=== PATIENT | female | born 1970 | race American Indian/Alaskan Native ===

== ENCOUNTER 2016-07-11 17:13 | Emergency (ER) | payer MEDICARE ==
[2016-07-11 19:02] VITALS: BP 142/94
--- NOTE | 2016-07-11 19:52 | Emergency Department Report ---
- General Chief Complaint: Dyspnea/Respdistress Stated Complaint: COUGHING WHITE THICK MUCUS Time Seen by Provider: 07/11/16 19:36 Source: patient Mode of arrival: Ambulatory Limitations: No Limitations - History of Present Illness Initial Comments: 46-year-old female presents to the emergency room with complaints of cough, cold symptoms, sinus congestion since last 3 days. Denies cough or any fever. Patient claims that she has similar episode in March of this year. He denies any chest pain or difficulty breathing. MD Complaint: cough, sore throat, rhinorrhea, nasal congestion -: Gradual (3) Severity: moderate Severity scale (0 -10): 3 Quality: dull Improves With: nothing Worsens With: deep breaths Associated Symptoms: rhinorrhea, nasal congestion, cough Treatments Prior to Arrival: none - Related Data Home Medications Medication Instructions Recorded Confirmed Last Taken Losartan/Hydrochlorothiazide 1 each PO QDAY 01/24/13 07/14/15 07/08/13 [Hyzaar 50-12.5] Insulin Aspart [NovoLOG 100 8 unit SQ AC 07/08/13 07/14/15 07/08/13 UNITS/ML VIAL] Insulin Glargine,Hum.rec.anlog 30 unit SQ QHS 07/08/13 07/14/15 07/08/13 [Lantus] AtorvaSTATin [Lipitor] 40 mg PO QHS 05/12/15 07/14/15 Unknown Folic Acid 1 mg PO DAILY 07/14/15 07/14/15 Unknown Previous Rx's Medication Instructions Recorded Last Taken Type HYDROcodone/APAP 5-325 [[place] 1 - 2 each PO Q6HR PRN #14 tablet 05/13/15 Unknown Rx 5/325] Ibuprofen [Motrin 800 MG tab] 800 mg PO Q8HR PRN #20 tablet 05/13/15 Unknown Rx Oxycodone HCl/Acetaminophen 1 each PO Q6HR PRN #20 tablet 07/14/15 Unknown Rx [Percocet 10/325 mg] Sulfamethoxazole/Trimethoprim 1 each PO BID #20 tablet 08/11/15 Unknown Rx [Bactrim DS TAB] Albuterol Sulfate [Proair 90 mcg IH Q4HR PRN #2 aer.pow.ba 05/09/16 Unknown Rx Respiclick] Benzonatate [Tessalon Perles] 100 mg PO Q8HR PRN #30 capsule 05/09/16 Unknown Rx Fluticasone [Flonase] 1 spray NS QDAY #1 bottle 05/09/16 Unknown Rx Ketorolac [Toradol] 10 mg PO Q6H PRN #20 tablet 05/09/16 Unknown Rx Azithromycin [Zithromax Z-CELIO] 0 mg PO DAILY #1 pack 07/11/16 Unknown Rx Cetirizine HCl [ZyrTEC] 10 mg PO DAILY #20 capsule 07/11/16 Unknown Rx Guaifenesin/Codeine Phosphate 15 ml PO QID #1 bottle 07/11/16 Unknown Rx [Guaifenesin-Codeine Syrup] predniSONE [Deltasone] 20 mg PO QDAY #5 tab 07/11/16 Unknown Rx Allergies Allergy/AdvReac Type Severity Reaction Status Date / Time No Known Allergies Allergy Verified 01/15/15 12:08 ED Review of Systems ROS: Stated complaint: COUGHING WHITE THICK MUCUS Other details as noted in HPI Comment: All other systems reviewed and negative Constitutional: denies: chills, fever Eyes: denies: eye pain, eye discharge, vision change ENT: denies: ear pain, throat pain Respiratory: see HPI, cough. denies: shortness of breath, wheezing Cardiovascular: as per HPI. denies: chest pain, palpitations Endocrine: no symptoms reported Gastrointestinal: as per HPI. denies: abdominal pain, nausea, diarrhea Genitourinary: denies: urgency, dysuria, discharge Musculoskeletal: as per HPI. denies: back pain, joint swelling, arthralgia Skin: denies: rash, lesions Neurological: denies: headache, weakness, paresthesias Psychiatric: denies: anxiety, depression Hematological/Lymphatic: denies: easy bleeding, easy bruising ED Past Medical Hx - Past Medical History Hx Hypertension: Yes Hx CVA: No Hx Heart Attack/AMI: No Hx Congestive Heart Failure: No Hx Diabetes: Yes Hx Deep Vein Thrombosis: No Hx Pulmonary Embolism: No Hx GERD: No Hx Liver Disease: No Hx Renal Disease: No Hx Sickle Cell Disease: Yes Hx Arthritis: No Hx Headaches / Migraines: Yes Hx Seizures: No Hx Kidney Stones: No Hx Psychiatric Treatment: No Hx Asthma: No Hx COPD: No Hx Tuberculosis: No Hx Dementia: No Hx HIV: No Additional medical history: High cholesterol, thalassemia. neuropathy - Surgical History Hx Coronary Stent: No Hx Open Heart Surgery: No Hx Pacemaker: No Hx Internal Defibrillator: No Hx Cholecystectomy: No Hx Appendectomy: No Hx Breast Surgery: No Additional Surgical History: Partial Hysterectomy (2009), Left & right foot posterior tendon repair - Social History Smoking Status: Never Smoker Substance Use Type: None - Medications Home Medications: Home Medications Medication Instructions Recorded Confirmed Last Taken Type Losartan/Hydrochlorothiazide 1 each PO QDAY 01/24/13 07/14/15 07/08/13 History [Hyzaar 50-12.5] Insulin Aspart [NovoLOG 100 8 unit SQ AC 07/08/13 07/14/15 07/08/13 History UNITS/ML VIAL] Insulin Glargine,Hum.rec.anlog 30 unit SQ QHS 07/08/13 07/14/15 07/08/13 History [Lantus] AtorvaSTATin [Lipitor] 40 mg PO QHS 05/12/15 07/14/15 Unknown History HYDROcodone/APAP 5-325 [[place] 1 - 2 each PO Q6HR PRN #14 tablet 05/13/15 Unknown Rx 5/325] Ibuprofen [Motrin 800 MG tab] 800 mg PO Q8HR PRN #20 tablet 05/13/15 07/14/15 Unknown Rx Folic Acid 1 mg PO DAILY 07/14/15 07/14/15 Unknown History Oxycodone HCl/Acetaminophen 1 each PO Q6HR PRN #20 tablet 07/14/15 Unknown Rx [Percocet 10/325 mg] Sulfamethoxazole/Trimethoprim 1 each PO BID #20 tablet 08/11/15 Unknown Rx [Bactrim DS TAB] Albuterol Sulfate [Proair 90 mcg IH Q4HR PRN #2 aer.pow.ba 05/09/16 Unknown Rx Respiclick] Benzonatate [Tessalon Perles] 100 mg PO Q8HR PRN #30 capsule 05/09/16 Unknown Rx Fluticasone [Flonase] 1 spray NS QDAY #1 bottle 05/09/16 Unknown Rx Ketorolac [Toradol] 10 mg PO Q6H PRN #20 tablet 05/09/16 Unknown Rx Azithromycin [Zithromax Z-CELIO] 0 mg PO DAILY #1 pack 07/11/16 Unknown Rx Cetirizine HCl [ZyrTEC] 10 mg PO DAILY #20 capsule 07/11/16 Unknown Rx Guaifenesin/Codeine Phosphate 15 ml PO QID #1 bottle 07/11/16 Unknown Rx [Guaifenesin-Codeine Syrup] predniSONE [Deltasone] 20 mg PO QDAY #5 tab 07/11/16 Unknown Rx ED Physical Exam - General Limitations: No Limitations General appearance: alert, in no apparent distress - Head Head exam: Present: atraumatic, normocephalic - Eye Eye exam: Present: normal appearance, PERRL, EOMI - ENT ENT exam: Present: normal exam, mucous membranes moist - Neck Neck exam: Present: normal inspection, tenderness - Respiratory Respiratory exam: Present: normal lung sounds bilaterally. Absent: respiratory distress, wheezes, rales, rhonchi, stridor - Cardiovascular Cardiovascular Exam: Present: regular rate, normal rhythm. Absent: systolic murmur, diastolic murmur, rubs, gallop - GI/Abdominal GI/Abdominal exam: Present: soft, normal bowel sounds - Extremities Exam Extremities exam: Present: normal inspection - Back Exam Back exam: Present: normal inspection - Neurological Exam Neurological exam: Present: alert, oriented X3 - Psychiatric Psychiatric exam: Present: normal affect, normal mood - Skin Skin exam: Present: warm, dry, intact, normal color. Absent: rash ED Course Vital Signs 07/11/16 18:57 Temperature 98.3 F Pulse Rate 85 Respiratory 18 Rate Blood Pressure 142/94 O2 Sat by Pulse 100 Oximetry Critical Care Time: No Critical care attestation.: If time is entered above; I have spent that time in minutes in the direct care of this critically ill patient, excluding procedure time. ED Disposition Clinical Impression: Bronchitis, acute, with bronchospasm, Cough Disposition: DISCHARGED TO HOME OR SELFCARE Is pt being admited?: No Does the pt Need Aspirin: No Condition: Good Instructions: Acute Bronchitis (ED) Prescriptions: Azithromycin [Zithromax Z-CELIO] 0 mg PO DAILY #1 pack Cetirizine HCl [ZyrTEC] 10 mg PO DAILY #20 capsule Guaifenesin/Codeine Phosphate [Guaifenesin-Codeine Syrup] 15 ml PO QID #1 bottle predniSONE [Deltasone] 20 mg PO QDAY #5 tab Referrals: PRIMARY CARE,MD [Primary Care Provider] - 3-5 Days
== END 2016-07-11 20:20 | disposition home or self-care (01) ==
LOC: ED 17:13
DX: J20.9 Acute bronchitis, unspecified (principal); I10 Essential (primary) hypertension; E11.9 Type 2 diabetes mellitus without complications; D57.00 Hb-SS disease with crisis, unspecified; E78.00 Pure hypercholesterolemia, unspecified; Z79.4 Long term (current) use of insulin
CPT/HCPCS: 99282

== ENCOUNTER 2016-08-07 21:10 | Emergency (ER) | payer MEDICARE ==
[2016-08-07 22:46] LABS: Basophils % (Auto) 0.6 % (0.0-1.8); Eosinophils % (Auto) 1.4 % (0.0-4.3); Hematocrit 30.8 % (30.3-42.9); Mean Corpuscular HGB Conc 33 % (30-34); Platelet Count 220 K/mm3 (140-440); Red Blood Count 4.52 M/mm3 (3.65-5.03); White Blood Count 6.8 K/mm3 (4.5-11.0)
[2016-08-07 22:50] LABS: Mean Corpuscular Hemoglobin 22 pg (28-32); Mean Corpuscular Volume 68 fl (79-97)
[2016-08-07 23:08] LABS: Alanine Aminotransferase 24 units/L (7-56); Albumin 4.3 g/dL (3.9-5); Albumin/Globulin Ratio 1.7 %; Alkaline Phosphatase 91 units/L (35-129); Anion Gap 20 mmol/L; BUN/Creatinine Ratio 11.42; Blood Urea Nitrogen 8 mg/dL (7-17); Calcium 9.2 mg/dL (8.4-10.2); Carbon Dioxide 25 mmol/L (22-30); Chloride 98.1 mmol/L (98-107); Glucose 331 mg/dL (65-100); Potassium 3.8 mmol/L (3.6-5.0); Sodium 139 mmol/L (137-145); Total Protein 6.8 g/dL (6.3-8.2)
[2016-08-08 00:07] LABS: Bilirubin,Urine NEG (Negative); Blood,Urine NEG (Negative); Ketones,Urine NEG (Negative); Leukocyte Esterase,Urine NEG (Negative); Mucus,Urine FEW /HPF; Nitrite,Urine NEG (Negative); Protein,Urine <15 mg/dL mg/dL (Negative); Urobilinogen,Urine < 2.0 mg/dL (<2.0)
[2016-08-08] MEDS ORDERED: NACL 0.9% 1000 ML 1,000 ML IV ONE (06:40)
--- NOTE | 2016-08-08 06:40 | Emergency Department Report ---
ED Female HPI - General Chief complaint: Abdominal Pain Stated complaint: ABD PAIN/VAGINAL IRRITATION Time Seen by Provider: 08/08/16 06:38 Source: patient Mode of arrival: Ambulatory Limitations: No Limitations - History of Present Illness Initial comments: Patient describes a malodorous vaginal discharge. She states that she believes she has an STD. Instead of waiting for a walk and she tells me with her precision grinder she came to the emergency department last night. She had not been seen by my arrival this morning. She does not complain of abdominal pain. She states that she placed a Q-tip inside her to be discharged but does not believe that she has a foreign body. She is status post a hysterectomy. She does not use any pads. She's had no recent fever or chills. MD Complaint: vaginal discharge, possible STD -: days(s) Severity: moderate Consistency: intermittent Improves with: none Worsens with: none Are you Now?: No - Related Data Sexually active: Yes Home Medications Medication Instructions Recorded Confirmed Last Taken Losartan/Hydrochlorothiazide 1 each PO QDAY 01/24/13 07/14/15 07/08/13 [Hyzaar 50-12.5] Insulin Aspart [NovoLOG 100 8 unit SQ AC 07/08/13 07/14/15 07/08/13 UNITS/ML VIAL] Insulin Glargine,Hum.rec.anlog 30 unit SQ QHS 07/08/13 07/14/15 07/08/13 [Lantus] AtorvaSTATin [Lipitor] 40 mg PO QHS 05/12/15 07/14/15 Unknown Folic Acid 1 mg PO DAILY 07/14/15 07/14/15 Unknown Previous Rx's Medication Instructions Recorded Last Taken Type HYDROcodone/APAP 5-325 [[place] 1 - 2 each PO Q6HR PRN #14 tablet 05/13/15 Unknown Rx 5/325] Ibuprofen [Motrin 800 MG tab] 800 mg PO Q8HR PRN #20 tablet 05/13/15 Unknown Rx Oxycodone HCl/Acetaminophen 1 each PO Q6HR PRN #20 tablet 07/14/15 Unknown Rx [Percocet 10/325 mg] Sulfamethoxazole/Trimethoprim 1 each PO BID #20 tablet 08/11/15 Unknown Rx [Bactrim DS TAB] Albuterol Sulfate [Proair 90 mcg IH Q4HR PRN #2 aer.pow.ba 05/09/16 Unknown Rx Respiclick] Benzonatate [Tessalon Perles] 100 mg PO Q8HR PRN #30 capsule 05/09/16 Unknown Rx Fluticasone [Flonase] 1 spray NS QDAY #1 bottle 05/09/16 Unknown Rx Ketorolac [Toradol] 10 mg PO Q6H PRN #20 tablet 05/09/16 Unknown Rx Azithromycin [Zithromax Z-CELIO] 0 mg PO DAILY #1 pack 07/11/16 Unknown Rx Cetirizine HCl [ZyrTEC] 10 mg PO DAILY #20 capsule 07/11/16 Unknown Rx Guaifenesin/Codeine Phosphate 15 ml PO QID #1 bottle 07/11/16 Unknown Rx [Guaifenesin-Codeine Syrup] predniSONE [Deltasone] 20 mg PO QDAY #5 tab 07/11/16 Unknown Rx Fluconazole [Diflucan] 100 mg PO QDAY #7 bottle 08/08/16 Unknown Rx metroNIDAZOLE [Metrogel] 60 gm TP QDAY #60 gel..gram. 08/08/16 Unknown Rx traMADol [Ultram] 50 mg PO Q6HR PRN #10 tablet 08/08/16 Unknown Rx Allergies Allergy/AdvReac Type Severity Reaction Status Date / Time No Known Allergies Allergy Verified 01/15/15 12:08 ED Review of Systems ROS: Stated complaint: ABD PAIN/VAGINAL IRRITATION Other details as noted in HPI Constitutional: denies: chills, fever Eyes: denies: eye pain, eye discharge, vision change ENT: denies: ear pain, throat pain Respiratory: denies: cough, shortness of breath, wheezing Cardiovascular: denies: chest pain, palpitations Endocrine: no symptoms reported Gastrointestinal: denies: abdominal pain, nausea, diarrhea Genitourinary: as per HPI. denies: urgency, dysuria, discharge Musculoskeletal: denies: back pain, joint swelling, arthralgia Skin: denies: rash, lesions Neurological: denies: headache, weakness, paresthesias Psychiatric: denies: anxiety, depression Hematological/Lymphatic: denies: easy bleeding, easy bruising ED Past Medical Hx - Past Medical History Previous Medical History?: Yes Hx Hypertension: Yes Hx CVA: No Hx Heart Attack/AMI: No Hx Congestive Heart Failure: No Hx Diabetes: Yes Hx Deep Vein Thrombosis: No Hx Pulmonary Embolism: No Hx GERD: No Hx Liver Disease: No Hx Renal Disease: No Hx Sickle Cell Disease: Yes Hx Arthritis: No Hx Headaches / Migraines: Yes Hx Seizures: No Hx Kidney Stones: No Hx Psychiatric Treatment: No Hx Asthma: No Hx COPD: No Hx Tuberculosis: No Hx Dementia: No Hx HIV: No Additional medical history: High cholesterol, thalassemia. neuropathy - Surgical History Past Surgical History?: Yes Hx Coronary Stent: No Hx Open Heart Surgery: No Hx Pacemaker: No Hx Internal Defibrillator: No Hx Cholecystectomy: No Hx Appendectomy: No Hx Breast Surgery: No Additional Surgical History: Partial Hysterectomy (2009), Left & right foot posterior tendon repair - Social History Smoking Status: Never Smoker Substance Use Type: None - Medications Home Medications: Home Medications Medication Instructions Recorded Confirmed Last Taken Type Losartan/Hydrochlorothiazide 1 each PO QDAY 01/24/13 07/14/15 07/08/13 History [Hyzaar 50-12.5] Insulin Aspart [NovoLOG 100 8 unit SQ AC 07/08/13 07/14/15 07/08/13 History UNITS/ML VIAL] Insulin Glargine,Hum.rec.anlog 30 unit SQ QHS 07/08/13 07/14/15 07/08/13 History [Lantus] AtorvaSTATin [Lipitor] 40 mg PO QHS 05/12/15 07/14/15 Unknown History HYDROcodone/APAP 5-325 [[place] 1 - 2 each PO Q6HR PRN #14 tablet 05/13/15 Unknown Rx 5/325] Ibuprofen [Motrin 800 MG tab] 800 mg PO Q8HR PRN #20 tablet 05/13/15 07/14/15 Unknown Rx Folic Acid 1 mg PO DAILY 07/14/15 07/14/15 Unknown History Oxycodone HCl/Acetaminophen 1 each PO Q6HR PRN #20 tablet 07/14/15 Unknown Rx [Percocet 10/325 mg] Sulfamethoxazole/Trimethoprim 1 each PO BID #20 tablet 08/11/15 Unknown Rx [Bactrim DS TAB] Albuterol Sulfate [Proair 90 mcg IH Q4HR PRN #2 aer.pow.ba 05/09/16 Unknown Rx Respiclick] Benzonatate [Tessalon Perles] 100 mg PO Q8HR PRN #30 capsule 05/09/16 Unknown Rx Fluticasone [Flonase] 1 spray NS QDAY #1 bottle 05/09/16 Unknown Rx Ketorolac [Toradol] 10 mg PO Q6H PRN #20 tablet 05/09/16 Unknown Rx Azithromycin [Zithromax Z-CELIO] 0 mg PO DAILY #1 pack 07/11/16 Unknown Rx Cetirizine HCl [ZyrTEC] 10 mg PO DAILY #20 capsule 07/11/16 Unknown Rx Guaifenesin/Codeine Phosphate 15 ml PO QID #1 bottle 07/11/16 Unknown Rx [Guaifenesin-Codeine Syrup] predniSONE [Deltasone] 20 mg PO QDAY #5 tab 07/11/16 Unknown Rx Fluconazole [Diflucan] 100 mg PO QDAY #7 bottle 08/08/16 Unknown Rx metroNIDAZOLE [Metrogel] 60 gm TP QDAY #60 gel..gram. 08/08/16 Unknown Rx traMADol [Ultram] 50 mg PO Q6HR PRN #10 tablet 08/08/16 Unknown Rx ED Physical Exam - General Limitations: No Limitations General appearance: alert, in no apparent distress - Head Head exam: Present: atraumatic, normocephalic - Eye Eye exam: Present: normal appearance - ENT ENT exam: Present: normal exam, mucous membranes moist - Neck Neck exam: Present: normal inspection - Respiratory Respiratory exam: Present: normal lung sounds bilaterally. Absent: respiratory distress - Cardiovascular Cardiovascular Exam: Present: regular rate, normal rhythm. Absent: systolic murmur, diastolic murmur, rubs, gallop - GI/Abdominal GI/Abdominal exam: Present: soft, normal bowel sounds. Absent: distended, tenderness, guarding, rebound, rigid - Extremities Exam Extremities exam: Present: normal inspection - Back Exam Back exam: Present: normal inspection - Neurological Exam Neurological exam: Present: alert, oriented X3, CN II-XII intact. Absent: motor sensory deficit - Psychiatric Psychiatric exam: Present: normal affect, normal mood - Skin Skin exam: Present: warm, dry, intact, normal color. Absent: rash ED Course Vital Signs 08/07/16 08/08/16 22:09 03:28 Temperature 98.7 F Pulse Rate 88 84 Respiratory 20 12 Rate Blood Pressure 144/95 144/97 O2 Sat by Pulse 100 98 Oximetry ED Medical Decision Making - Lab Data Result diagrams: 08/07/16 22:20 08/07/16 22:20 Laboratory Results - last 24 hr 08/07/16 08/07/16 08/07/16 22:20 22:20 23:14 WBC 6.8 RBC 4.52 Hgb 10.0 L Hct 30.8 MCV 68 L MCH 22 L MCHC 33 RDW 21.0 H Plt Count 220 Lymph % (Auto) 31.7 [place] % (Auto) 6.0 Eos % (Auto) 1.4 Baso % (Auto) 0.6 Lymph # 2.2 [place] # 0.4 Eos # 0.1 Baso # 0.0 Seg Neutrophils % 60.3 Seg Neutrophils # 4.1 Sodium 139 Potassium 3.8 Chloride 98.1 Carbon Dioxide 25 Anion Gap 20 BUN 8 Creatinine 0.7 Estimated GFR > 60 BUN/Creatinine Ratio 11.42 Glucose 331 H Calcium 9.2 Total Bilirubin 0.90 AST 20 ALT 24 Alkaline Phosphatase 91 Total Protein 6.8 Albumin 4.3 Albumin/Globulin Ratio 1.7 Urine Color Yellow Urine Turbidity Clear Urine pH 6.0 Ur Specific [place] 1.018 Urine Protein <15 mg/dl Urine Glucose (UA) >=500 Urine Ketones Neg Urine Blood Neg Urine Nitrite Neg Urine Bilirubin Neg Urine Urobilinogen < 2.0 Ur Leukocyte Esterase Neg Urine WBC (Auto) 4.0 Urine RBC (Auto) 4.0 U Epithel Cells (Auto) 5.0 Urine Mucus Few Urine HCG, Qual Negative Critical care attestation.: If time is entered above; I have spent that time in minutes in the direct care of this critically ill patient, excluding procedure time. 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 Prescriptions: Fluconazole [Diflucan] 100 mg PO QDAY #7 bottle metroNIDAZOLE [Metrogel] 60 gm TP QDAY #60 gel..gram. 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
[2016-08-08] MEDS ORDERED: ULTRAM PO ONE (08:04)
[2016-08-08] MEDS ORDERED: ZITHROMAX PO ONE (08:06)
[2016-08-08] MEDS ORDERED: DIFLUCAN PO ONE (09:00)
[2016-08-08 09:26] VITALS: BP 132/78
== END 2016-08-08 09:26 | disposition home or self-care (01) ==
LOC: ED 21:10
DX: N76.0 Acute vaginitis (principal); E11.65 Type 2 diabetes mellitus with hyperglycemia; I10 Essential (primary) hypertension; D57.00 Hb-SS disease with crisis, unspecified; G43.909 Migraine, unspecified, not intractable, without status migrainosus; E78.00 Pure hypercholesterolemia, unspecified; Z79.4 Long term (current) use of insulin
CPT/HCPCS: 36415; 80053; 81001; 81025; 85025; 87210; 87591; 96360; 99284; J7030

== ENCOUNTER 2016-08-30 16:01 | Emergency (ER) | payer MEDICARE ==
[2016-08-30 17:45] LABS: Hematocrit 32.7 % (30.3-42.9); Hemoglobin 10.5 gm/dl (10.1-14.3); Mean Corpuscular HGB Conc 32 % (30-34); Platelet Count 275 K/mm3 (140-440); Red Blood Count 4.79 M/mm3 (3.65-5.03); White Blood Count 8.2 K/mm3 (4.5-11.0)
[2016-08-30 17:46] LABS: Mean Corpuscular Hemoglobin 22 pg (28-32); Mean Corpuscular Volume 68 fl (79-97); Red Cell Distribution Width 20.5 % (13.2-15.2)
[2016-08-30 17:58] LABS: Anion Gap 20 mmol/L; BUN/Creatinine Ratio 11.66; Blood Urea Nitrogen 7 mg/dL (7-17); Calcium 9.5 mg/dL (8.4-10.2); Carbon Dioxide 26 mmol/L (22-30); Chloride 99.1 mmol/L (98-107); Glucose 189 mg/dL (65-100); Potassium 3.6 mmol/L (3.6-5.0); Sodium 141 mmol/L (137-145)
--- NOTE | 2016-08-30 18:01 | XRay Report ---
FINAL REPORT PROCEDURE: XR CHEST ROUTINE 2V TECHNIQUE: PA and lateral chest radiographs were obtained. CPT 89120 HISTORY: Upper Respiratory Infection COMPARISON: No prior studies are available for comparison. FINDINGS: Heart: Normal. Mediastinum/Vessels: Normal. Lungs/Pleural space: Slight infiltrate left lower lung. Bony thorax: No acute osseous abnormality. Other: IMPRESSION: Slight infiltrate left lower lung.
[2016-08-30 18:38] LABS: Blastocytes % (Manual) 0 %; Eosinophils % (Manual) 0 % (0.0-4.3)
[2016-08-30 18:39] LABS: Anisocytosis 1+; Diff Status Complete; Hypochromasia 1+; Macrocytosis 1+; Platelet Estimate Consistent w Auto
[2016-08-30] MEDS ORDERED: LEVAQUIN PO ONE (19:06)
--- NOTE | 2016-08-30 19:10 | Emergency Department Report ---
- General Chief Complaint: Upper Respiratory Infection Stated Complaint: BRONCHITIS PROBLEM/COUGH/CHEST HURT Time Seen by Provider: 08/30/16 18:46 Source: patient Mode of arrival: Ambulatory Limitations: No Limitations - History of Present Illness Initial Comments: Patient comes into the ER today with complaints of cough and congestion for the past 2 months. Patient does state that she was seen 2 months ago and was given some antibiotic and cough syrup and she does not believe that her symptoms are fully went away. Patient does state that over the past week, she has been coughing more and not sleeping very well because of the cough. Patient describes the cough as somewhat productive and that it is worse at night. Patient does state that she does get some chest discomfort when she coughs only. Patient denies any chest pain on exertion nor any shortness of breath on exertion. MD Complaint: cough -: month(s) (2) - Related Data Home Medications Medication Instructions Recorded Confirmed Last Taken Losartan/Hydrochlorothiazide 1 each PO QDAY 01/24/13 07/14/15 07/08/13 [Hyzaar 50-12.5] Insulin Aspart [NovoLOG 100 8 unit SQ AC 07/08/13 07/14/15 07/08/13 UNITS/ML VIAL] Insulin Glargine,Hum.rec.anlog 30 unit SQ QHS 07/08/13 07/14/15 07/08/13 [Lantus] AtorvaSTATin [Lipitor] 40 mg PO QHS 05/12/15 07/14/15 Unknown Folic Acid 1 mg PO DAILY 07/14/15 07/14/15 Unknown Previous Rx's Medication Instructions Recorded Last Taken Type Albuterol Sulfate [Proair 90 mcg IH Q4HR PRN #2 aer.pow.ba 05/09/16 Unknown Rx Respiclick] Benzonatate [Tessalon Perles] 100 mg PO Q8HR PRN #30 capsule 05/09/16 Unknown Rx Fluticasone [Flonase] 1 spray NS QDAY #1 bottle 05/09/16 Unknown Rx Cetirizine HCl [ZyrTEC] 10 mg PO DAILY #20 capsule 07/11/16 Unknown Rx predniSONE [Deltasone] 20 mg PO QDAY #5 tab 07/11/16 Unknown Rx Fluconazole [Diflucan] 100 mg PO QDAY #7 bottle 08/08/16 Unknown Rx metroNIDAZOLE [Metrogel 1%] 60 gm TP QDAY #60 gel..gram. 08/08/16 Unknown Rx Levofloxacin [Levaquin] 750 mg PO QDAY #10 tablet 08/30/16 Unknown Rx Promethazine /Codeine 5 ml PO Q6H PRN #120 ml 08/30/16 Unknown Rx [Phenergan/Codeine 6.25-10 mg/5Ml] Allergies Allergy/AdvReac Type Severity Reaction Status Date / Time No Known Allergies Allergy Verified 01/15/15 12:08 ED Review of Systems ROS: Stated complaint: BRONCHITIS PROBLEM/COUGH/CHEST HURT Other details as noted in HPI Constitutional: chills. denies: fever Eyes: denies: eye pain, eye discharge, vision change ENT: congestion. denies: ear pain, throat pain, epistaxis Respiratory: cough. denies: shortness of breath, SOB with exertion, wheezing Cardiovascular: chest pain (when coughing). denies: palpitations Endocrine: no symptoms reported Gastrointestinal: denies: abdominal pain, nausea, diarrhea Genitourinary: denies: urgency, dysuria, discharge Musculoskeletal: denies: back pain, joint swelling, arthralgia Skin: denies: rash, lesions Neurological: denies: headache, weakness, paresthesias Psychiatric: denies: anxiety, depression Hematological/Lymphatic: denies: easy bleeding, easy bruising ED Past Medical Hx - Past Medical History Hx Hypertension: Yes Hx CVA: No Hx Heart Attack/AMI: No Hx Congestive Heart Failure: No Hx Diabetes: Yes Hx Deep Vein Thrombosis: No Hx Pulmonary Embolism: No Hx GERD: No Hx Liver Disease: No Hx Renal Disease: No Hx Sickle Cell Disease: Yes Hx Arthritis: No Hx Headaches / Migraines: Yes Hx Seizures: No Hx Kidney Stones: No Hx Psychiatric Treatment: No Hx Asthma: No Hx COPD: No Hx Tuberculosis: No Hx Dementia: No Hx HIV: No Additional medical history: High cholesterol, thalassemia. neuropathy - Surgical History Hx Coronary Stent: No Hx Open Heart Surgery: No Hx Pacemaker: No Hx Internal Defibrillator: No Hx Cholecystectomy: No Hx Appendectomy: No Hx Breast Surgery: No Additional Surgical History: Partial Hysterectomy (2009), Left & right foot posterior tendon repair - Social History Smoking Status: Never Smoker Substance Use Type: None - Medications Home Medications: Home Medications Medication Instructions Recorded Confirmed Last Taken Type Losartan/Hydrochlorothiazide 1 each PO QDAY 01/24/13 07/14/15 07/08/13 History [Hyzaar 50-12.5] Insulin Aspart [NovoLOG 100 8 unit SQ AC 07/08/13 07/14/15 07/08/13 History UNITS/ML VIAL] Insulin Glargine,Hum.rec.anlog 30 unit SQ QHS 07/08/13 07/14/15 07/08/13 History [Lantus] AtorvaSTATin [Lipitor] 40 mg PO QHS 05/12/15 07/14/15 Unknown History Folic Acid 1 mg PO DAILY 07/14/15 07/14/15 Unknown History Albuterol Sulfate [Proair 90 mcg IH Q4HR PRN #2 aer.pow.ba 05/09/16 Unknown Rx Respiclick] Benzonatate [Tessalon Perles] 100 mg PO Q8HR PRN #30 capsule 05/09/16 Unknown Rx Fluticasone [Flonase] 1 spray NS QDAY #1 bottle 05/09/16 Unknown Rx Cetirizine HCl [ZyrTEC] 10 mg PO DAILY #20 capsule 07/11/16 Unknown Rx predniSONE [Deltasone] 20 mg PO QDAY #5 tab 07/11/16 Unknown Rx Fluconazole [Diflucan] 100 mg PO QDAY #7 bottle 08/08/16 Unknown Rx metroNIDAZOLE [Metrogel 1%] 60 gm TP QDAY #60 gel..gram. 08/08/16 Unknown Rx Levofloxacin [Levaquin] 750 mg PO QDAY #10 tablet 08/30/16 Unknown Rx Promethazine /Codeine 5 ml PO Q6H PRN #120 ml 08/30/16 Unknown Rx [Phenergan/Codeine 6.25-10 mg/5Ml] ED Physical Exam - General Limitations: No Limitations General appearance: alert, in no apparent distress - Head Head exam: Present: atraumatic, normocephalic - Eye Eye exam: Present: normal appearance, PERRL - ENT ENT exam: Present: normal orophraynx, mucous membranes moist, TM's normal bilaterally, normal external ear exam, other (mild amount of nasal mucosa swelling and congestion) - Neck Neck exam: Present: normal inspection. Absent: tenderness, meningismus, lymphadenopathy - Respiratory Respiratory exam: Present: normal lung sounds bilaterally, rhonchi. Absent: respiratory distress, wheezes, rales, chest wall tenderness, accessory muscle use, decreased breath sounds - Cardiovascular Cardiovascular Exam: Present: regular rate, normal rhythm. Absent: systolic murmur, diastolic murmur, rubs, gallop - GI/Abdominal GI/Abdominal exam: Present: soft, normal bowel sounds - Extremities Exam Extremities exam: Present: normal inspection, normal capillary refill. Absent: pedal edema, joint swelling, calf tenderness - Back Exam Back exam: Present: normal inspection - Neurological Exam Neurological exam: Present: alert, oriented X3, CN II-XII intact - Psychiatric Psychiatric exam: Present: normal affect, normal mood - Skin Skin exam: Present: warm, dry, intact, normal color. Absent: rash ED Course Vital Signs 08/30/16 08/30/16 16:07 16:16 Temperature 98.8 F 98.8 F Pulse Rate 110 H 106 H Respiratory 18 Rate Blood Pressure 135/93 Blood Pressure 127/85 [Right] O2 Sat by Pulse 100 100 Oximetry ED Medical Decision Making - Lab Data Result diagrams: 08/30/16 17:15 08/30/16 17:15 Lab Results 08/30/16 08/30/16 08/30/16 Range/Units 17:15 17:15 17:15 WBC 8.2 (4.5-11.0) K/mm3 RBC 4.79 (3.65-5.03) M/mm3 Hgb 10.5 (10.1-14.3) gm/dl Hct 32.7 (30.3-42.9) % MCV 68 L (79-97) fl MCH 22 L (28-32) pg MCHC 32 (30-34) % RDW 20.5 H (13.2-15.2) % Plt Count 275 (140-440) K/mm3 Add Manual Diff Complete Total Counted 100 Seg Neuts % (Manual) 64.0 (40.0-70.0) % Band Neutrophils % 0 % Lymphocytes % (Manual) 31.0 (13.4-35.0) % Reactive Lymphs % (Man) 0 % Monocytes % (Manual) 3.0 (0.0-7.3) % Eosinophils % (Manual) 0 (0.0-4.3) % Basophils % (Manual) 2.0 H (0.0-1.8) % Metamyelocytes % 0 % Myelocytes % 0 % Promyelocytes % 0 % Blast Cells % 0 % Nucleated RBC % Not Reportable Seg Neutrophils # Man 5.2 (1.8-7.7) K/mm3 Band Neutrophils # 0.0 K/mm3 Lymphocytes # (Manual) 2.5 (1.2-5.4) K/mm3 Abs React Lymphs (Man) 0.0 K/mm3 Monocytes # (Manual) 0.2 (0.0-0.8) K/mm3 Eosinophils # (Manual) 0.0 (0.0-0.4) K/mm3 Basophils # (Manual) 0.2 H (0.0-0.1) K/mm3 Metamyelocytes # 0.0 K/mm3 Myelocytes # 0.0 K/mm3 Promyelocytes # 0.0 K/mm3 Blast Cells # 0.0 K/mm3 WBC Morphology Not Reportable Hypersegmented Neuts Not Reportable Hyposegmented Neuts Not Reportable Hypogranular Neuts Not Reportable Smudge Cells Not Reportable Toxic Granulation Not Reportable Toxic Vacuolation Not Reportable Dohle Bodies Not Reportable Pelger-Huet Anomaly Not Reportable Anupama Rods Not Reportable Platelet Estimate Consistent w auto Clumped Platelets Not Reportable Plt Clumps, EDTA Not Reportable Large Platelets Not Reportable Giant Platelets Not Reportable Platelet Satelliting Not Reportable Plt Morphology Comment Not Reportable RBC Morphology Not Reportable Dimorphic RBCs Not Reportable Polychromasia Not Reportable Hypochromasia 1+ Poikilocytosis Not Reportable Anisocytosis 1+ Microcytosis Not Reportable Macrocytosis 1+ Spherocytes Not Reportable Pappenheimer Bodies Not Reportable Sickle Cells Not Reportable Target Cells Not Reportable Tear Drop Cells Not Reportable Ovalocytes Not Reportable Helmet Cells Not Reportable [place] Bodies Not Reportable [place] Rings Not Reportable [place] Cells Not Reportable Bite Cells Not Reportable Crenated Cell Not Reportable Elliptocytes Not Reportable Acanthocytes (Spur) Not Reportable Rouleaux Not Reportable Hemoglobin C Crystals Not Reportable Schistocytes Not Reportable Malaria parasites Not Reportable Brooks Bodies Not Reportable Hem Pathologist Commnt No D-Dimer 300.41 H (0-234) ng/mlDDU Sodium 141 (137-145) mmol/L Potassium 3.6 (3.6-5.0) mmol/L Chloride 99.1 (98-107) mmol/L Carbon Dioxide 26 (22-30) mmol/L Anion Gap 20 mmol/L BUN 7 (7-17) mg/dL Creatinine 0.6 L (0.7-1.2) mg/dL Estimated GFR > 60 ml/min BUN/Creatinine Ratio 11.66 % Glucose 189 H (65-100) mg/dL Calcium 9.5 (8.4-10.2) mg/dL - EKG Data EKG shows normal: sinus rhythm Rate: normal (87) - EKG Data When compared to previous EKG there are: no significant change Interpretation: no acute changes, normal EKG - Radiology Data Radiology results: report reviewed Left lower lobe infiltrate - Medical Decision Making Patient is nontoxic and hemodynamically stable. X-ray results reviewed and discussed with patient room as well as lab results and EKG findings. I informed patient that her chest x-ray showing left lower lobe early infiltrate. Patient was given single dose of Levaquin 750 mg here in the ER. I will continue patient on medications properly and instructed patient to follow up with her primary care doctor to ensure resolution of her illness. Patient is in agreement with treatment plan and patient is stable for discharge. Critical care attestation.: If time is entered above; I have spent that time in minutes in the direct care of this critically ill patient, excluding procedure time. ED Disposition Clinical Impression: Cough, Left lower lobe pneumonia Disposition: DISCHARGED TO HOME OR SELFCARE Is pt being admited?: No Does the pt Need Aspirin: No Condition: Good Instructions: Community-acquired Pneumonia (ED) Prescriptions: Levofloxacin [Levaquin] 750 mg PO QDAY #10 tablet Promethazine /Codeine [Phenergan/Codeine 6.25-10 mg/5Ml] 5 ml PO Q6H PRN #120 ml PRN Reason: cough Referrals: PRIMARY CARE, [Primary Care Provider] - 3-5 Days Time of Disposition: 19:37
[2016-08-31 04:56] VITALS: BP 127/89
== END 2016-08-30 19:40 | disposition home or self-care (01) ==
LOC: ED 16:01
DX: J18.9 Pneumonia, unspecified organism (principal); R05 Cough; E11.9 Type 2 diabetes mellitus without complications; D57.1 Sickle-cell disease without crisis; Z79.4 Long term (current) use of insulin
CPT/HCPCS: 36415; 71020; 80048; 85007; 85025; 85379; 93005; 93010

== ENCOUNTER 2017-01-06 12:06 | Emergency (ER) | payer MEDICARE ==
[2017-01-06 12:49] VITALS: BP 143/77
[2017-01-06 13:11] LABS: Hematocrit 32.5 % (30.3-42.9); Hemoglobin 10.4 gm/dl (10.1-14.3); Mean Corpuscular HGB Conc 32 % (30-34); Platelet Count 214 K/mm3 (140-440); Red Blood Count 4.77 M/mm3 (3.65-5.03); Red Cell Distribution Width 19.9 % (13.2-15.2); White Blood Count 6.2 K/mm3 (4.5-11.0)
[2017-01-06 13:14] LABS: Mean Corpuscular Volume 68 fl (79-97)
[2017-01-06 13:15] LABS: Mean Corpuscular Hemoglobin 22 pg (28-32)
[2017-01-06 13:29] LABS: Anion Gap 17 mmol/L; BUN/Creatinine Ratio 12; Blood Urea Nitrogen 6 mg/dL (7-17); Calcium 9.1 mg/dL (8.4-10.2); Carbon Dioxide 25 mmol/L (22-30); Chloride 101.1 mmol/L (98-107); Glucose 235 mg/dL (65-100); Potassium 4.2 mmol/L (3.6-5.0); Sodium 139 mmol/L (137-145)
--- NOTE | 2017-01-06 15:12 | Emergency Department Report ---
- General Chief Complaint: Upper Respiratory Infection Stated Complaint: BRONCHITIS Time Seen by Provider: 01/06/17 14:26 Source: patient Mode of arrival: Ambulatory Limitations: No Limitations - History of Present Illness Initial Comments: Patient is a 46-year-old female who presents due to cough 5 days. Patient states that the cough is worse at night, she also complains of having sore throat. Patient denies any fever. Patient states that the cough is productive and she is coughing up yellow sputum. Patient states that she had pneumonia about 2 months ago and she was given anabiotic's. Patient states that symptoms resolved but returned 5 days ago. MD Complaint: cough, nasal congestion Onset/Timin -: days(s) Severity: moderate Severity scale (0 -10): 7 Quality: aching Consistency: intermittent Improves With: nothing Worsens With: other (coughing) Associated Symptoms: nasal congestion, cough. denies: fever, chills, myalgias, diaphoresis, headache, rhinorrhea, sore throat Treatments Prior to Arrival: none - Related Data Home Medications Medication Instructions Recorded Confirmed Last Taken Losartan/Hydrochlorothiazide 1 each PO QDAY 01/24/13 07/14/15 07/08/13 [Hyzaar 50-12.5] Insulin Aspart [NovoLOG 100 8 unit SQ AC 07/08/13 07/14/15 07/08/13 UNITS/ML VIAL] Insulin Glargine,Hum.rec.anlog 30 unit SQ QHS 07/08/13 07/14/15 07/08/13 [Lantus] AtorvaSTATin [Lipitor] 40 mg PO QHS 05/12/15 07/14/15 Unknown Folic Acid 1 mg PO DAILY 07/14/15 07/14/15 Unknown Previous Rx's Medication Instructions Recorded Last Taken Type Albuterol Sulfate [Proair 90 mcg IH Q4HR PRN #2 aer.pow.ba 05/09/16 Unknown Rx Respiclick] Benzonatate [Tessalon Perles] 100 mg PO Q8HR PRN #30 capsule 05/09/16 Unknown Rx Fluticasone [Flonase] 1 spray NS QDAY #1 bottle 05/09/16 Unknown Rx Cetirizine HCl [ZyrTEC] 10 mg PO DAILY #20 capsule 07/11/16 Unknown Rx predniSONE [Deltasone] 20 mg PO QDAY #5 tab 07/11/16 Unknown Rx Fluconazole [Diflucan] 100 mg PO QDAY #7 bottle 08/08/16 Unknown Rx metroNIDAZOLE [Metrogel 1%] 60 gm TP QDAY #60 gel..gram. 08/08/16 Unknown Rx Levofloxacin [Levaquin] 750 mg PO QDAY #10 tablet 08/30/16 Unknown Rx Promethazine /Codeine 5 ml PO Q6H PRN #120 ml 08/30/16 Unknown Rx [Phenergan/Codeine 6.25-10 mg/5Ml] Azithromycin [Zithromax Z-CELIO] 250 mg PO DAILY #6 tab 01/06/17 Unknown Rx Fluticasone [Flonase] 2 spray NS QDAY #1 bottle 01/06/17 Unknown Rx Ibuprofen [Motrin 600 MG tab] 600 mg PO Q8H PRN #30 tablet 01/06/17 Unknown Rx Promethazine /Codeine 5 ml PO Q6H PRN #120 ml 01/06/17 Unknown Rx [Phenergan/Codeine 6.25-10 mg/5 ml] Allergies Allergy/AdvReac Type Severity Reaction Status Date / Time No Known Allergies Allergy Verified 01/15/15 12:08 ED Review of Systems ROS: Stated complaint: BRONCHITIS Other details as noted in HPI Comment: All other systems reviewed and negative Constitutional: no symptoms reported. denies: chills, diaphoresis, fever, malaise, weakness ENT: throat pain, congestion. denies: ear pain, dental pain, hearing loss, epistaxis Respiratory: cough. denies: orthopnea, shortness of breath, SOB with exertion, SOB at rest, stridor, wheezing Cardiovascular: denies: chest pain, palpitations, dyspnea on exertion, orthopnea , edema, syncope, paroxysmal nocturnal dyspnea Musculoskeletal: denies: back pain Skin: denies: rash ED Past Medical Hx - Past Medical History Hx Hypertension: Yes Hx CVA: No Hx Heart Attack/AMI: No Hx Congestive Heart Failure: No Hx Diabetes: Yes Hx Deep Vein Thrombosis: No Hx Pulmonary Embolism: No Hx GERD: No Hx Liver Disease: No Hx Renal Disease: No Hx Sickle Cell Disease: Yes Hx Arthritis: No Hx Headaches / Migraines: Yes Hx Seizures: No Hx Kidney Stones: No Hx Psychiatric Treatment: No Hx Asthma: No Hx COPD: No Hx Tuberculosis: No Hx Dementia: No Hx HIV: No Additional medical history: High cholesterol, thalassemia. neuropathy - Surgical History Hx Coronary Stent: No Hx Open Heart Surgery: No Hx Pacemaker: No Hx Internal Defibrillator: No Hx Cholecystectomy: No Hx Appendectomy: No Hx Breast Surgery: No Additional Surgical History: Partial Hysterectomy (2009), Left & right foot posterior tendon repair - Social History Smoking Status: Never Smoker Substance Use Type: None - Medications Home Medications: Home Medications Medication Instructions Recorded Confirmed Last Taken Type Losartan/Hydrochlorothiazide 1 each PO QDAY 01/24/13 07/14/15 07/08/13 History [Hyzaar 50-12.5] Insulin Aspart [NovoLOG 100 8 unit SQ AC 07/08/13 07/14/15 07/08/13 History UNITS/ML VIAL] Insulin Glargine,Hum.rec.anlog 30 unit SQ QHS 07/08/13 07/14/15 07/08/13 History [Lantus] AtorvaSTATin [Lipitor] 40 mg PO QHS 05/12/15 07/14/15 Unknown History Folic Acid 1 mg PO DAILY 07/14/15 07/14/15 Unknown History Albuterol Sulfate [Proair 90 mcg IH Q4HR PRN #2 aer.pow.ba 05/09/16 Unknown Rx Respiclick] Benzonatate [Tessalon Perles] 100 mg PO Q8HR PRN #30 capsule 05/09/16 Unknown Rx Fluticasone [Flonase] 1 spray NS QDAY #1 bottle 05/09/16 Unknown Rx Cetirizine HCl [ZyrTEC] 10 mg PO DAILY #20 capsule 07/11/16 Unknown Rx predniSONE [Deltasone] 20 mg PO QDAY #5 tab 07/11/16 Unknown Rx Fluconazole [Diflucan] 100 mg PO QDAY #7 bottle 08/08/16 Unknown Rx metroNIDAZOLE [Metrogel 1%] 60 gm TP QDAY #60 gel..gram. 08/08/16 Unknown Rx Levofloxacin [Levaquin] 750 mg PO QDAY #10 tablet 08/30/16 Unknown Rx Promethazine /Codeine 5 ml PO Q6H PRN #120 ml 08/30/16 Unknown Rx [Phenergan/Codeine 6.25-10 mg/5Ml] Azithromycin [Zithromax Z-CELIO] 250 mg PO DAILY #6 tab 01/06/17 Unknown Rx Fluticasone [Flonase] 2 spray NS QDAY #1 bottle 01/06/17 Unknown Rx Ibuprofen [Motrin 600 MG tab] 600 mg PO Q8H PRN #30 tablet 01/06/17 Unknown Rx Promethazine /Codeine 5 ml PO Q6H PRN #120 ml 01/06/17 Unknown Rx [Phenergan/Codeine 6.25-10 mg/5 ml] ED Physical Exam - General Limitations: No Limitations General appearance: alert, in no apparent distress - Head Head exam: Present: atraumatic, normocephalic, normal inspection - Eye Eye exam: Present: normal appearance Pupils: Present: normal accommodation - ENT ENT exam: Present: normal exam, normal orophraynx, mucous membranes moist. Absent: mucous membranes dry - Neck Neck exam: Present: normal inspection, full ROM. Absent: tenderness, meningismus - Respiratory Respiratory exam: Present: normal lung sounds bilaterally. Absent: respiratory distress, wheezes, rales, rhonchi, stridor, chest wall tenderness, accessory muscle use, decreased breath sounds, prolonged expiratory - Cardiovascular Cardiovascular Exam: Present: regular rate, normal rhythm, normal heart sounds - Extremities Exam Extremities exam: Present: normal inspection, full ROM. Absent: tenderness - Neurological Exam Neurological exam: Present: alert, oriented X3, normal gait - Psychiatric Psychiatric exam: Present: normal affect, normal mood - Skin Skin exam: Present: warm, dry, intact ED Course Vital Signs 01/06/17 12:45 Temperature 98.1 F Pulse Rate 80 Respiratory 18 Rate Blood Pressure 143/77 O2 Sat by Pulse 100 Oximetry ED Medical Decision Making - Lab Data Result diagrams: 01/06/17 12:52 01/06/17 12:52 Lab Results 01/06/17 01/06/17 Range/Units 12:52 12:52 WBC 6.2 (4.5-11.0) K/mm3 RBC 4.77 (3.65-5.03) M/mm3 Hgb 10.4 (10.1-14.3) gm/dl Hct 32.5 (30.3-42.9) % MCV 68 L (79-97) fl MCH 22 L (28-32) pg MCHC 32 (30-34) % RDW 19.9 H (13.2-15.2) % Plt Count 214 (140-440) K/mm3 Sodium 139 (137-145) mmol/L Potassium 4.2 (3.6-5.0) mmol/L Chloride 101.1 (98-107) mmol/L Carbon Dioxide 25 (22-30) mmol/L Anion Gap 17 mmol/L BUN 6 L (7-17) mg/dL Creatinine 0.5 L (0.7-1.2) mg/dL Estimated GFR > 60 ml/min BUN/Creatinine Ratio 12 % Glucose 235 H (65-100) mg/dL Calcium 9.1 (8.4-10.2) mg/dL - Radiology Data Radiology results: image reviewed interpreted by me: Chest x-ray shows no infiltrates or consolidation. - Medical Decision Making Patient was in no acute distress, patient had clear bilateral lung sounds with good air exchange. Patient had no tonsillar erythema, no tonsillar exudates, no peritonsillar abscess. No uvula deviation. Chest x-ray showed no infiltrates or consolidation. Patient was discharged with a prescription for azithromycin, Flonase, promethazine with codeine, and ibuprofen. - Differential Diagnosis bronchitis, URI, pneumonia Critical care attestation.: If time is entered above; I have spent that time in minutes in the direct care of this critically ill patient, excluding procedure time. ED Disposition Clinical Impression: Bronchitis URI (upper respiratory infection) Qualifiers: URI type: unspecified URI Qualified Code(s): J06.9 - Acute upper respiratory infection, unspecified Disposition: DC-01 TO HOME OR SELFCARE Is pt being admited?: No Does the pt Need Aspirin: No Condition: Good Instructions: Acute Bronchitis (ED), Upper Respiratory Infection (ED) Additional Instructions: take azithromycin fro 5 days as prescribed. Take promethazine with codeine 1 teaspoon every 6 hoursa as needed for cough. Apply 2 flonase nasal spray to eat nostrin daily. Take Ibuprofen 600mg every 6 hours as needed for pain or fever. Prescriptions: Azithromycin [Zithromax Z-CELIO] 250 mg PO DAILY #6 tab Fluticasone [Flonase] 2 spray NS QDAY #1 bottle Ibuprofen [Motrin 600 MG tab] 600 mg PO Q8H PRN #30 tablet PRN Reason: Pain Promethazine /Codeine [Phenergan/Codeine 6.25-10 mg/5 ml] 5 ml PO Q6H PRN #120 ml PRN Reason: cough Referrals: PRIMARY CARE, [Primary Care Provider] - 3-5 Days [facility] [Outside] - 3-5 Days Time of Disposition: 15:14
--- NOTE | 2017-01-06 15:14 | XRay Report ---
CHEST 2 VIEWS INDICATION: Productive cough. COMPARISON: 08/30/2016. FINDINGS: PA and lateral chest radiographs demonstrate normal cardiomediastinal silhouette. Clear lungs. Mild thoracic spine degenerative changes. CONCLUSION: No acute disease in the chest. Thank you for the opportunity to participate in this patient's care.
== END 2017-01-06 15:38 | disposition home or self-care (01) ==
LOC: ED 12:06
DX: J06.9 Acute upper respiratory infection, unspecified (principal); J40 Bronchitis, not specified as acute or chronic; I10 Essential (primary) hypertension; E11.9 Type 2 diabetes mellitus without complications; E78.5 Hyperlipidemia, unspecified; Z79.82 Long term (current) use of aspirin
CPT/HCPCS: 36415; 71020; 80048; 85027; 87116; 87430; 99283

== ENCOUNTER 2020-09-12 14:49 | Emergency (ER) | payer MEDICARE ==
[2020-09-12 17:35] VITALS: BP 161/87
--- NOTE | 2020-09-12 17:43 | Event Note ---
ED Screening Note Date of service: 09/12/20 Time: 17:41 ED Screening Note: 50-year-old female patient with history of diabetes, hypertension, hyperlipidemia, secondhand smoke exposure, sickle cell disease, and beta thalassemia presents to the emergency department with complaints of nontraumatic headache, chest pain, and shortness of breath for 3 days. Symptoms are worse with movement and lying supine. Describes the chest pain as "an achy feeling." Baseline hemoglobin is 9.0. No prior splenectomy. General: Awake, appropriately interactive, no acute distress. Neck: Supple. Full range of motion intact. Cardiovascular: Normal peripheral perfusion. Pulmonary: No respiratory distress. Patient is speaking normally without use of accessory muscles. Skin: No apparent rashes or lesions. Neurological: No facial asymmetry. Speech is clear. Follows commands. Patient is alert and oriented. Musculoskeletal: Moves all four extremities spontaneously with normal range of motion. Psych: Cooperative. Appropriate mood and affect. I have greeted and performed a focused rapid initial assessment of this patient. A comprehensive ED assessment and evaluation of the patient, analysis of all test results, and completion of the medical decision-making process will be conducted by additional ED providers. This initial assessment/diagnostic orders/clinical plan/treatment(s) is/are subject to change based on patients health status, clinical progression and re-assessment. Further treatment and workup at subsequent clinical provider's discretion. Patient/guardian urged not to elope from the ED as their condition may be serious if not clinically assessed and managed.
--- NOTE | 2020-09-12 18:04 | XRay Report ---
CHEST 2 VIEWS INDICATION / CLINICAL INFORMATION: chest pain; hx sickle cell disease. COMPARISON: None available. FINDINGS: SUPPORT DEVICES: None. HEART / MEDIASTINUM: No significant abnormality. LUNGS / PLEURA: No significant pulmonary or pleural abnormality. No pneumothorax. ADDITIONAL FINDINGS: No significant additional findings. IMPRESSION: 1. No acute findings. Signer Name: Larry Mckeon MD Signed: 09/12/2020 5:59 PM Workstation Name: [id number]
[2020-09-12 18:25] LABS: Basophils % (Auto) 0.6 % (0.0-1.8); Eosinophils # (Auto) 0.1 K/mm3 (0.0-0.4); Eosinophils % (Auto) 1.5 % (0.0-4.3); Hematocrit 32.1 % (30.3-42.9); Hemoglobin 10.1 gm/dl (10.1-14.3); Lymphocytes # (Auto) 2.2 K/mm3 (1.2-5.4); Lymphocytes % (Auto) 29.5 % (13.4-35.0); Mean Corpuscular HGB Conc 32 % (30-34); Monocytes # (Auto) 0.4 K/mm3 (0.0-0.8); Monocytes % (Auto) 5.8 % (0.0-7.3); Red Blood Count 4.78 M/mm3 (3.65-5.03)
[2020-09-12 18:31] LABS: Mean Corpuscular Volume 67 fl (79-97); Platelet Count 248 K/mm3 (140-440); Red Cell Distribution Width 21.5 % (13.2-15.2)
[2020-09-12 18:41] LABS: INR 0.98 (0.87-1.13)
[2020-09-12 18:42] LABS: Partial Thromboplastin Time 28.2 Sec. (24.2-36.6)
[2020-09-12 18:49] LABS: Alanine Aminotransferase 28 units/L (7-56); Albumin 4.8 g/dL (3.9-5); Blood Urea Nitrogen 8 mg/dL (7-17); Calcium 10.3 mg/dL (8.4-10.2); Hemolysis Index 4
[2020-09-12 18:53] LABS: BUN/Creatinine Ratio 13
--- NOTE | 2020-09-14 19:28 | Electrocardiograph Report ---
[facility] Test Date: 2020-09-12 Test Time: 17:09:17 Pat Name: DARIN ARVIZU Department: Room: Gender: F Asbestos Handler: TICO : 1970 Requested By: ART GOODWIN Order Number: [id number] Reading MD: Pavan Bar Measurements Intervals [place] Rate: 81 P: 47 ND: 139 QRS: 5 QRSD: 81 T: 9 QT: 383 QTc: 444 Interpretive Statements Sinus rhythm Probable left atrial enlargement Probable left ventricular hypertrophy No previous ECG available for comparison Electronically Signed On 09-14-2020 19:28:31 EDT by Pavan Bar
== END 2020-09-12 20:46 | disposition left against medical advice (07) ==
LOC: ED 14:49
DX: R51.9 Headache, unspecified (principal); R06.00 Dyspnea, unspecified; Z53.21 Procedure and treatment not carried out due to patient leaving prior to being seen by health care provider
CPT/HCPCS: 36415; 71046; 80053; 83735; 84484; 85025; 85045; 85610; 85730; 86850; 86900; 86901; 93005